=== PATIENT | male | born 1975 | race Caucasian/White ===

== ENCOUNTER 2023-06-05 18:25 | Emergency (ER) | payer MEDICARE, SELFPAY ==
[2023-06-05 18:33] VITALS: BP 134/93; PULSE 121; RESP 14; TEMP 37.1; O2SAT 97; BMI 26.6
--- NOTE | 2023-06-05 19:16 | ED_ITS ---
HPI - URI/Sore Throat General: Chief Complaint: Upper Respiratory Infection Stated Complaint: flu symptoms Time Seen by Provider: 06/05/23 19:04 Source: patient Mode of arrival: ambulatory Limitations: no limitations History of Present Illness: Patient is a 48-year-old male who presents to ED today with a complaint of a cough. Patient states that he felt like he had influenza a week or so ago but had seemed to recover until a few days ago when he felt like he was worsening again. His only complaint at this time is cough and congestion. He does not complain of pain in his chest or significant shortness of breath. He is not having any abdominal pain, vomiting, diarrhea. States he seems to be drinking and eating okay. MD elicited complaint: cough Onset (ago): day(s) Consistency: constant Severity: moderate Description of mucous: clear Able to tolerate fluids by mouth: Yes Exacerbating factors: nothing Relieving factors: nothing Associated symptoms: Reports no associated symptoms; Deny abdominal pain, chills, chest pain, diarrhea, fever(s), headache(s), nasal congestion, nausea, sinus pain or vomiting Treatments prior to arrival: none Review of Systems Const: Denies: fever(s), chills, body aches, fatigue or malaise ENMT: Denies: throat pain, odynophagia, nasal discharge, nasal congestion or sinus pain Card: Denies: chest pain Resp: Reports: productive cough and chest congestion; Denies: dyspnea, wheezing or hemoptysis GI: Denies: abdominal pain, nausea, vomiting or diarrhea : Denies: flank pain or dysuria Musc: Denies: neck pain, back pain, extremity pain or joint pain Skin/Breast: Denies: rash Neuro: Denies: headache(s), numbness in extremities, weakness in extremities, sensory changes or dizziness Physical Exam Const: COMMON NORMALS: no acute distress, average body habitus, patient oriented x3, alert and well nourished EXAM LIMITATIONS: other limitations (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) GENERAL APPEARANCE: cooperative HENMT: COMMON NORMALS: normocephalic and atraumatic HEAD & SCALP: normal to inspection, normocephalic and atraumatic FACE & SINUS: normal facial exam TEETH & GINGIVA: Yes caries and Yes poor dentition Eye: GENERAL EYE: appearance normal, both eyes and all related structures Neck/C-Spine: COMMON NORMALS: no lymphadenopathy Chest: COMMONS NORMALS: normal inspection of the chest and normal palpation of entire chest wall Resp: COMMON NORMALS: normal respiratory effort and clear to auscultation bilaterally AUSCULTATION: clear to auscultation bilaterally Cardio: COMMON NORMALS: regular rhythm RATE: tachycardic RHYTHM: regular rhythm GI: COMMON NORMALS: Normal to inspection, nondistended, normoactive bowel sounds present, Soft to palpation, non-tender, No hepatosplenomegaly present and no masses PALPATION: Yes Soft to palpation and Yes No hepatosplenomegaly present : COMMON NORMALS: Yes no CVA tenderness BLADDER/KIDNEY EXAM: Yes no CVA tenderness Back/Pelvis: COMMON NORMALS: no CVA tenderness Extremity: GENERAL: Yes normal exam except as noted Neuro: COMMON NORMALS: patient oriented x3 SENSORIUM/ORIENTATION: Yes alert Skin: COMMON NORMALS: no rashes or lesions noted GENERAL SKIN EXAM: no rashes or lesions noted Course Vital Signs: Vital signs: Vital Signs Temperature 98.8 F 06/05/23 18:33 Pulse Rate 109 H 06/05/23 21:22 Respiratory Rate 18 06/05/23 21:22 Blood Pressure 137/97 06/05/23 21:22 Pulse Oximetry 98 06/05/23 21:22 Oxygen Delivery Me thod Room Air 06/05/23 20:18 MDM - URI/Sore Throat Medical Decision Making Patient appears in no acute distress. His influenza and COVID swabs are negative. CXR personal interpretation shows a questionable left lower lobe pneumonia. CXR reviewed with Dr. Stveen who agrees. Will place patient on antibiotics to cover for CAP. Will get him set up with primary care for follow- up in case symptoms do not improve. Return ED precautions given. Differential Diagnosis Likely upper respiratory infection, viral infection and bronchitis Medical Records I reviewed the patient's medical records. Lab Data I reviewed the patient's lab results. Radiology Impressions Chest X-Ray 06/05/23 19:39 IMPRESSION: No acute findings. Laboratory Results Influenza Type A Ag negative (Negative) 06/05/23 19:21 Influenza Type B Ag negative (Negative) 06/05/23 19:21 SARS-CoV-2 Ag (Rapid) negative (Negative) 06/05/23 19:21 XR interpretation done by ED provider, pending radiology final review Discharge Plan Discharge Patient Disposition: Home Clinical Impression: LLL pneumonia Qualifiers: Pneumonia type: due to unspecified organism Qualified Code(s): J18.9 - Pneumonia, unspecified organism Condition: Stable Prescriptions: New azithromycin 250 mg tablet See Rx Instructions .ROUTE .COMPLEX Qty: 6 0RF Rx Instructions: take 500 mg today (day 1), then 250 mg for 4 days (days 2-5) amoxicillin-pot clavulanate 875-125 mg tablet 1 tab PO BID Qty: 14 0RF Discharge Orders: Discharge ED (Routine); Ordered 06/05/23 Ordered By: Hayley Adames Patient Instructions: Pneumonia (ED) Activity Restrictions/Additional Instructions: As we discussed you need to return to the emergency department or follow-up with primary care if cough worsens, you start having severe chest pain, shortness of breath, difficulty breathing, fevers, generally feeling worse or unwell, or any other concerns you may have. Coding Level of Care Code ED [employer]
--- NOTE | 2023-06-05 19:39 | XRR_ITS ---
PROCEDURE INFORMATION: Exam: XR Chest Exam date and time: 06/05/2023 8:43 PM Age: 48 years old Clinical indication: Cough TECHNIQUE: Imaging protocol: Radiologic exam of the chest. Views: 1 view. COMPARISON: No relevant prior studies available. FINDINGS: Lungs: Lungs are clear. Pleural spaces: No pleural effusion. No pneumothorax. Heart/Mediastinum: Normal cardiomediastinal silhouette. Bones/joints: No acute osseous abnormality. XR/XR chest 1V portable [id number] IMPRESSION: No acute findings.
[2023-06-05 19:57] LABS: Influenza A by IFA negative (Negative); Influenza B by IFA negative (Negative); SARS Covid-2 Antigen negative (Negative)
[2023-06-05 20:18] VITALS: PULSE 114; O2SAT 93
[2023-06-05] MEDS: cefTRIAXone 1,000 MG in water for injection-sterile 2.1 ML 1 MG IM (21:21)
[2023-06-05 21:22] VITALS: BP 137/97; PULSE 109; RESP 18; O2SAT 98
--- NOTE | 2023-06-06 07:49 | DCPLANNER ---
A message was sent to [facility] on 06/06/[address] at [address] [place] [address] to contact patient for appt.
== END 2023-06-05 21:24 | disposition home or self-care (01) ==
PROVIDERS: Emergency Medicine; Emergency Provider Physician Assistant
DX: J18.9 Pneumonia, unspecified organism (principal); Z11.52 Encounter for screening for COVID-19
CPT/HCPCS: 71045; 87426; 87804; 96372; 99284; J0696

== ENCOUNTER → 2023-06-11 12:42 | Outpatient (BNVA) | payer MEDICARE, MEDICAID, SELFPAY | PROVIDERS: Visit Provider Nurse Practitioner Family | DX: R53.83 Other fatigue (principal); J18.9 Pneumonia, unspecified organism | CPT/HCPCS: 71046; 80053; 84443; 85025 ==

== ENCOUNTER 2023-08-27 21:47 | Emergency (ER) | payer MEDICARE, MEDICAID, SELFPAY ==
--- NOTE | 2023-08-27 22:06 | PC.NURSE ---
Pt. wanted me to tell him during triage if he needed to be seen or not. I have explained to him that i am not allowed to make that call for him, if he needs to be seen that we would be glad to see him. Pt. states that he thinks he will come back if needed, but at this time he is going home.
== END 2023-08-27 22:08 | disposition left against medical advice (07) ==
LOC: ER 21:56
PROVIDERS: Emergency Provider Family Medicine; PCP Nurse Practitioner Family
DX: Z53.21 Procedure and treatment not carried out due to patient leaving prior to being seen by health care provider (principal)

== ENCOUNTER 2025-03-15 08:53 | Outpatient (CLI) | payer MEDICARE, MEDICAID, SELFPAY ==
--- NOTE | 2025-03-15 09:05 | XRR_ITS ---
PROCEDURE INFORMATION: Exam: XR Right Hip Exam date and time: 03/15/2025 9:16 AM Age: 50 years old Clinical indication: Hip pain; Right hip; Off & on pain in RT hip no reported injury. ; Additional info: Right hip pain TECHNIQUE: Imaging protocol: Radiologic exam of the right hip. Views: 2 or 3 views hip with pelvis when performed. COMPARISON: No relevant prior studies available. FINDINGS: Bones/joints: Unremarkable. No acute fracture. Soft tissues: Unremarkable. XR/XR hip RT 2-3V wo/w pel* [id number] IMPRESSION: No acute findings.
== END 2025-03-15 08:54 | disposition home or self-care (01) ==
DX: M25.551 Pain in right hip (principal); Z76.89 Persons encountering health services in other specified circumstances
CPT/HCPCS: 73502; 80053; 85025